=== PATIENT | female | born 1990 | race American Indian/Alaskan Native ===

== ENCOUNTER 2017-09-21 00:32 | Outpatient (CLI) | payer MEDICAID ==
[2017-09-21 01:44] LABS: Bilirubin,Urine NEG (Negative); Blood,Urine NEG (Negative); Color,Urine Yellow (Yellow); Mucus,Urine FEW /HPF; Protein,Urine <15 mg/dL mg/dL (Negative); Urobilinogen,Urine < 2.0 mg/dL (<2.0)
== END 2017-09-21 03:47 | disposition home or self-care (01) ==
LOC: TRG 00:32 → LD 00:35 → TRG 03:47
PROVIDERS: ATTEND Obstetrics & Gynecology
DX: O99.332 Smoking (tobacco) complicating pregnancy, second trimester (principal); F17.200 Nicotine dependence, unspecified, uncomplicated; O47.02 False labor before 37 completed weeks of gestation, second trimester; Z3A.25 25 weeks gestation of pregnancy
CPT/HCPCS: 59025; 81001

== ENCOUNTER 2017-09-25 01:33 | Outpatient (CLI) | payer MEDICAID ==
[2017-09-25] MEDS ORDERED: LACTATED RINGERS 500 ML IV ONE (01:50)
[2017-09-25 01:57] VITALS: BP 130/68
== END 2017-09-25 02:22 | disposition home or self-care (01) ==
LOC: LD 01:33 → TRG 01:33
PROVIDERS: ATTEND Obstetrics & Gynecology
DX: O47.02 False labor before 37 completed weeks of gestation, second trimester (principal); Z3A.26 26 weeks gestation of pregnancy
CPT/HCPCS: 59025; J7120

== ENCOUNTER 2017-10-15 00:44 | Outpatient (CLI) | payer MEDICAID ==
[2017-10-15 00:57] VITALS: BP 121/66
[2017-10-15] MEDS ORDERED: LACTATED RINGERS 500 ML IV ONE (01:12)
== END 2017-10-15 01:56 | disposition home or self-care (01) ==
LOC: TRG 00:44
PROVIDERS: ATTEND Obstetrics & Gynecology
DX: O47.03 False labor before 37 completed weeks of gestation, third trimester (principal); Z3A.29 29 weeks gestation of pregnancy
CPT/HCPCS: 59025

== ENCOUNTER 2020-03-07 17:19 | Emergency (ER) | payer MEDICAID, OTHER ==
[2020-03-07 17:30] VITALS: BP 151/92
--- NOTE | 2020-03-07 18:44 | Emergency Department Report ---
ED ENT HPI - General Chief complaint: Dental/Oral Stated complaint: tooth pain/6weeks preg Time Seen by Provider: 03/07/20 18:38 Source: patient Mode of arrival: Ambulatory Limitations: No Limitations - History of Present Illness Initial comments: 29 y/o female presents to ER for teeth pain times 1 day. Patient reports that the fan blew on her and she got a sharp pain through tooth. 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 Patient is 6 weeks . No ob complaints. MD complaint: tooth pain -: This afternoon Location: tooth # ([id number]) Severity: severe Quality: stabbing, sharp Consistency: intermittent Improves with: none Worsens with: none Context- Dental: history of dental caries, poor dental care - Related Data Previous Rx's Medication Instructions Recorded Last Taken Type Acetaminophen [Non-Aspirin Pain 500 mg PO Q6H #30 tablet 03/07/20 Unknown Rx Relief] Amoxicillin [Trimox CAP] 500 mg PO Q8H 10 Days #30 capsule 03/07/20 Unknown Rx Allergies Allergy/AdvReac Type Severity Reaction Status Date / Time aspirin Allergy Swelling Verified 03/07/20 17:25 ED Dental HPI - General Chief complaint: Dental/Oral Stated complaint: tooth pain/6weeks preg Time Seen by Provider: 03/07/20 18:38 Source: patient Mode of arrival: Ambulatory Limitations: No Limitations - Related Data Previous Rx's Medication Instructions Recorded Last Taken Type Acetaminophen [Non-Aspirin Pain 500 mg PO Q6H #30 tablet 03/07/20 Unknown Rx Relief] Amoxicillin [Trimox CAP] 500 mg PO Q8H 10 Days #30 capsule 03/07/20 Unknown Rx Allergies Allergy/AdvReac Type Severity Reaction Status Date / Time aspirin Allergy Swelling Verified 03/07/20 17:25 ED Review of Systems ROS: Stated complaint: tooth pain/6weeks preg Other details as noted in HPI Comment: All other systems reviewed and negative ED Past Medical Hx - Past Medical History Hx Hypertension: Yes Hx Diabetes: No Hx Deep Vein Thrombosis: No Hx Renal Disease: No Hx Sickle Cell Disease: No Hx Headaches / Migraines: Yes Hx Seizures: No Hx Asthma: Yes (LAST YEAR) Hx HIV: No - Social History Smoking Status: Never Smoker Substance Use Type: None - Medications Home Medications: Home Medications Medication Instructions Recorded Confirmed Last Taken Type Acetaminophen [Non-Aspirin Pain 500 mg PO Q6H #30 tablet 03/07/20 Unknown Rx Relief] Amoxicillin [Trimox CAP] 500 mg PO Q8H 10 Days #30 capsule 03/07/20 Unknown Rx ED Physical Exam - General Limitations: No Limitations General appearance: alert, in no apparent distress - Head Head exam: Present: atraumatic, normocephalic - Eye Eye exam: Present: normal appearance - Expanded ENT Exam Expanded Teeth exam: Present: dental caries, gingival enlargement Throat exam: Positive: normal inspection - Neck Neck exam: Present: normal inspection, full ROM - Neurological Exam Neurological exam: Present: alert, oriented X3, normal gait - Psychiatric Psychiatric exam: Present: normal affect, normal mood - Skin Skin exam: Present: warm, dry, intact, normal color. Absent: rash ED Course Vital Signs 03/07/20 17:28 Temperature 99.4 F Pulse Rate 97 H Respiratory 20 Rate Blood Pressure 151/92 [Right] O2 Sat by Pulse 95 Oximetry ED Medical Decision Making - Medical Decision Making 29 y/o female presents to ER for teeth pain times 1 day. Patient reports that the fan blew on her and she got a sharp pain through tooth. 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 Patient is 6 weeks . No ob complaints. Patient will be placed on amoxicillin 500mg tid for 10 days. Encourage to keep appointment to dentist. Take Tylenol as prescribed. Critical care attestation.: If time is entered above; I have spent that time in minutes in the direct care of this critically ill patient, excluding procedure time. ED Disposition Clinical Impression: Dental abscess Disposition: DC- TO HOME OR SELFCARE Is pt being admited?: No Does the pt Need Aspirin: No Condition: Stable Instructions: Dental Abscess (ED) Additional Instructions: Complete antibiotic as prescribed take pain medication. Prescriptions: Acetaminophen [Non-Aspirin Pain Relief] 500 mg PO Q6H #30 tablet Amoxicillin [Trimox CAP] 500 mg PO Q8H 10 Days #30 capsule
== END 2020-03-07 19:00 | disposition home or self-care (01) ==
LOC: ED 17:19
DX: O99.611 Diseases of the digestive system complicating pregnancy, first trimester (principal); K04.7 Periapical abscess without sinus; G43.909 Migraine, unspecified, not intractable, without status migrainosus; J45.909 Unspecified asthma, uncomplicated; Z3A.01 Less than 8 weeks gestation of pregnancy; Z79.2 Long term (current) use of antibiotics; Z79.899 Other long term (current) drug therapy; Z88.6 Allergy status to analgesic agent
CPT/HCPCS: 99282

== ENCOUNTER 2020-04-06 11:27 | Day surgery (SDC) | payer OTHER ==
[2020-04-06] MEDS ORDERED: ONDANSETRON 4 MG/2 ML INJ ONE (13:01)
[2020-04-06] MEDS ORDERED: LIDOCAINE MPF (2%) 20 MG/1 ML VIAL 5 ML ONE (13:01)
[2020-04-06] MEDS ORDERED: propofoL 200 MG/20 ML VIAL IV ONE (13:02)
[2020-04-06] MEDS ORDERED: fentaNYL 100 MCG/2 ML INJ ONE (13:02)
[2020-04-06] MEDS ORDERED: HYDROmorphone 1 MG/1 ML INJ IV PRN (13:14)
[2020-04-06] MEDS ORDERED: MEPERIDINE 25 MG/1 ML INJ IV PRN (13:14)
[2020-04-06] MEDS ORDERED: ONDANSETRON 4 MG/2 ML INJ IV PRN (13:14)
--- NOTE | 2020-04-06 13:14 | Anesthesia Consultation ---
Anesthesia Consult and Med Hx Date of service: 04/06/20 - Airway Anesthetic Teeth Evaluation: Good ROM Head & Neck: Adequate Mental/Hyoid Distance: Adequate Mallampati Class: Class I Intubation Access Assessment: Good - Pulmonary Exam CTA: Yes - Cardiac Exam Cardiac Exam: RRR - Pre-Operative Health Status ASA Pre-Surgery Classification: ASA2 Proposed Anesthetic Plan: General - Pulmonary Hx Smoking: Yes (/ PPD) Hx Asthma: Yes (last inhaler use 3 yrs ago) Hx Respiratory Symptoms: No - Cardiovascular System Hx Hypertension: Yes (no meds) Hx Heart Attack/AMI: No - Central Nervous System CVA: No - Gastrointestinal Hx Gastroesophageal Reflux Disease: No - Endocrine Hx Renal Disease: No Hx Liver Disease: No Hx Insulin Dependent Diabetes: No Hx Non-Insulin Dependent Diabetes: No Hx Thyroid Disease: No - Other Systems Hx Obesity: No - Additional Comments Anesthesia Medical History Comments: No hx anesthetic complications. D&C for missed AB <12wks.
--- NOTE | 2020-04-06 13:14 | Anesthesia Day of Surgery ---
Anesthesia Day of Surgery - Day of Surgery Patient Examined: Yes Patient H&P Reviewed: Yes Patient is NPO: Yes
[2020-04-06] MEDS ORDERED: SILVER NITRATE APPLICATOR 1 EA TP ONE (13:17)
[2020-04-06] MEDS ORDERED: ceFAZolin/STERILE WATER 2 GM/20 ML SYRINGE IV NR (13:22)
[2020-04-06] MEDS ORDERED: SCOPOLAMINE TRANSDERMAL PATCH 72 HR TD NR (14:00)
[2020-04-06] MEDS ORDERED: LACTATED RINGERS 1,000 ML IV SCH (14:00)
[2020-04-06] MEDS ORDERED: MIDAZOLAM 2 MG/2 ML INJ IV NR (14:00)
[2020-04-06] MEDS ORDERED: METHYLERGONOVINE MALEATE 0.2 MG/ML VIAL IM ONE (14:01)
[2020-04-06] MEDS ORDERED: KETOROLAC 30 MG/1 ML INJ ONE (14:19)
[2020-04-06] MEDS ORDERED: LACTATED RINGERS 1,000 ML ONE (14:19)
--- NOTE | 2020-04-06 14:33 | Operative Report ---
Operative Report Operative Report: Preoperative diagnosis: Missed Postoperative diagnosis: Same Surgeon: Dr. Monika Adame Anesthesia:GET Complications: None EBL:300ml IV fluids: 1 L Urine output adequate and clear Drains none Findings: Boggy retroverted 10 weeks size uterus, products of conception Procedure: Patient was consented in preop holding. She was then taken to the OR where she received excellent general endotracheal anesthesia. She was then placed in the dorsolithotomy position, prepped and draped in a sterile fashion. A timeout was verified. Adequate urine output obtained with a red rubber catheter. Exam under anesthesia revealed the above findings. A speculum was placed in the vaginal vault and a single-tooth tenaculum placed on the anterior lip of the cervix. The endocervical canal was dilated to allow for a 10 mm curved curette. Suction curettage was then performed, adequate products of conception obtained. At the completion of the procedure sharp curettage was performed to ensure complete evacuation of the uterus. Patient was noted to be bleeding moderately and Methergine 0.2 mg was given IM x1 dose. Excellent hemostasis was then noted and the uterus was noted to be firm. The tenaculum and speculum were removed from the cervix and vaginal vault respectively. The patient was extubated and taken to the recovery area in stable condition. There were no complications. All sponge needle and instrument counts were correct x2. Patient's family was notified of her stable status prior to extubation. She will be discharged and follow-up in the outpatient setting. Dr Monika Adame MD
[2020-04-06] MEDS ORDERED: dexAMETHasone 20 MG/5 ML VIAL ONE (14:42)
[2020-04-06 15:27] VITALS: BP 125/73
--- NOTE | 2020-04-06 15:38 | Post Anesthesia Evaluation ---
- Post Anesthesia Evaluation Patient Participated: Yes Airway Patent: Yes Stable Respiratory Function: Yes Nausea/Vomiting: No Temp > 96.8F: Yes Pain Manageable: Yes Adequeate Hydration: Yes Anesthesia Complications: No
== END 2020-04-06 15:39 | disposition home or self-care (01) ==
LOC: OR 11:27
PROVIDERS: ATTEND Obstetrics & Gynecology
DX: O02.1 Missed abortion (principal); F17.210 Nicotine dependence, cigarettes, uncomplicated; I10 Essential (primary) hypertension; J45.909 Unspecified asthma, uncomplicated; F32.9 Major depressive disorder, single episode, unspecified; F41.9 Anxiety disorder, unspecified; Z72.89 Other problems related to lifestyle; Z88.6 Allergy status to analgesic agent; Z83.3 Family history of diabetes mellitus; Z79.899 Other long term (current) drug therapy; Z82.49 Family history of ischemic heart disease and other diseases of the circulatory system
CPT/HCPCS: 59820; 88305; J0690; J1100; J1170; J1885; J2210; J2250; J2405; J2704; J3010; J7120

== ENCOUNTER 2021-10-18 13:14 | Emergency (ER) | payer OTHER ==
--- NOTE | 2021-10-18 15:15 | Emergency Department Report ---
ED Female HPI - General Chief complaint: Medical Clearance Stated complaint: DEHYDRATED/19 WKS PREG Time Seen by Provider: 10/18/21 15:10 Source: patient Mode of arrival: Ambulatory Limitations: No Limitations - History of Present Illness Initial comments: Patient is a 31-year-old female that comes to the emergency room she states because her DIRECTOR OF CONSULTING SERVICES sent her because she is dehydrated. However she is carrying a liter bottle of water and a tray of food. She denies fever or chills. She is clearly not actively vomiting. Denies nausea or diarrhea. Denies any vaginal discharge or bleeding. Denies dysuria. She is ambulatory nontoxic non-ill-lakia earing on arrival. Last menstrual period was 1-15. This is her fourth . She has 2 living children has had 1 miscarriage -: Gradual, days(s) Severity scale (0 -10): 0 Are you Now?: Yes Associated Symptoms: denies other symptoms - Related Data Sexually active: Yes Previous Rx's Medication Instructions Recorded Last Taken Type Amoxicillin [Trimox CAP] 500 mg PO BID #20 capsule 10/18/21 Unknown Rx Ondansetron [Zofran Odt] 4 mg PO Q8HR PRN #10 tab.rapdis 10/18/21 Unknown Rx Allergies Allergy/AdvReac Type Severity Reaction Status Date / Time aspirin Allergy Swelling Verified 04/05/20 15:16 ED Review of Systems ROS: Stated complaint: DEHYDRATED/19 WKS PREG Other details as noted in HPI Comment: All other systems reviewed and negative ED Past Medical Hx - Past Medical History Previous Medical History?: Yes Hx Hypertension: Yes (no meds) Hx Heart Attack/AMI: No Hx Diabetes: No Hx Deep Vein Thrombosis: No Hx Liver Disease: No Hx Renal Disease: No Hx Headaches / Migraines: Yes Hx Asthma: Yes (last inhaler use 3 yrs ago) Hx HIV: No - Surgical History Past Surgical History?: No - Family History Family history: no significant - Social History Smoking Status: Current Every Day Smoker Substance Use Type: None - Medications Home Medications: Home Medications Medication Instructions Recorded Confirmed Last Taken Type Amoxicillin [Trimox CAP] 500 mg PO BID #20 capsule 10/18/21 Unknown Rx Ondansetron [Zofran Odt] 4 mg PO Q8HR PRN #10 tab.rapdis 10/18/21 Unknown Rx ED Physical Exam - General Limitations: No Limitations General appearance: alert, in no apparent distress - Head Head exam: Present: atraumatic, normocephalic - Eye Eye exam: Present: normal appearance - ENT ENT exam: Present: mucous membranes moist - Neck Neck exam: Present: normal inspection - Respiratory Respiratory exam: Present: normal lung sounds bilaterally. Absent: respiratory distress - Cardiovascular Cardiovascular Exam: Present: regular rate, normal rhythm. Absent: systolic murmur, diastolic murmur, rubs, gallop - GI/Abdominal GI/Abdominal exam: Present: soft, normal bowel sounds - Extremities Exam Extremities exam: Present: normal inspection - Back Exam Back exam: Present: normal inspection - Neurological Exam Neurological exam: Present: alert, oriented X3 - Psychiatric Psychiatric exam: Present: normal affect, normal mood - Skin Skin exam: Present: warm, dry, intact, normal color. Absent: rash ED Course Vital Signs 10/18/21 14:09 Temperature 98.3 F Pulse Rate 89 Respiratory 16 Rate Blood Pressure 138/59 [Right] O2 Sat by Pulse 99 Oximetry ED Medical Decision Making - Lab Data Result diagrams: 10/18/21 15:01 10/18/21 15:01 - Medical Decision Making Lab Results 10/18/21 10/18/21 10/18/21 Range/Units 15:01 15:01 Unknown WBC 14.9 H (4.5-11.0) K/mm3 RBC 3.47 L (3.65-5.03) M/mm3 Hgb 10.9 (10.1-14.3) gm/dl Hct 32.8 (30.3-42.9) % MCV 94 (79-97) fl MCH 31 (28-32) pg MCHC 33 (30-34) % RDW 13.7 (13.2-15.2) % Plt Count 269 (140-440) K/mm3 Lymph % (Auto) 23.2 (13.4-35.0) % [place] % (Auto) 6.7 (0.0-7.3) % Eos % (Auto) 1.6 (0.0-4.3) % Baso % (Auto) 0.5 (0.0-1.8) % Lymph # (Auto) 3.5 (1.2-5.4) K/mm3 [place] # (Auto) 1.0 H (0.0-0.8) K/mm3 Eos # (Auto) 0.2 (0.0-0.4) K/mm3 Baso # (Auto) 0.1 (0.0-0.1) K/mm3 Seg Neutrophils % 68.0 (40.0-70.0) % Seg Neutrophils # 10.1 H (1.8-7.7) K/mm3 Sodium 133 L (137-145) mmol/L Potassium 3.6 (3.6-5.0) mmol/L Chloride 98.3 (98-107) mmol/L Carbon Dioxide 24 (22-30) mmol/L Anion Gap 14 mmol/L BUN 16 (7-17) mg/dL Creatinine 0.8 (0.6-1.2) mg/dL Estimated GFR > 60 ml/min BUN/Creatinine Ratio 20 % Glucose 93 (65-100) mg/dL Calcium 9.0 (8.4-10.2) mg/dL Total Bilirubin < 0.20 (0.1-1.2) mg/dL AST 17 (5-40) units/L ALT 16 (7-56) units/L Alkaline Phosphatase 53 (35-129) units/L Total Protein 7.5 (6.3-8.2) g/dL Albumin 4.1 (3.9-5) g/dL Albumin/Globulin Ratio 1.2 % Lipase 26 (13-60) units/L Urine Color Colorless (Yellow) Urine Turbidity Clear (Clear) Urine pH 6.0 (5.0-7.0) Ur Specific [place] 1.001 L (1.003-1.030) Urine Protein <15 mg/dl (Negative) mg/dL Urine Glucose (UA) Neg (Negative) mg/dL Urine Ketones Neg (Negative) mg/dL Urine Blood Sm (Negative) Urine Nitrite Neg (Negative) Urine Bilirubin Neg (Negative) Urine Urobilinogen < 2.0 (<2.0) mg/dL Ur Leukocyte Esterase Lg (Negative) Urine WBC (Auto) 23.0 H (0.0-6.0) /HPF Urine RBC (Auto) 2.0 (0.0-6.0) /HPF U Epithel Cells (Auto) 2.0 (0-13.0) /HPF Urine Bacteria (Auto) 1+ (Negative) /HPF Vital Signs 10/18/21 14:09 Temperature 98.3 F Pulse Rate 89 Respiratory 16 Rate Blood Pressure 138/59 [Right] O2 Sat by Pulse 99 Oximetry Vital signs are normal. Patient is taking p.o. Labs noted. UA noted. Patient given a liter of normal saline, a gram of Rocephin, Zofran IV x1. Patient being discharged home on amoxicillin. Patient verbalizes understanding of discharge plan of care including diet, activity, medications and follow-up. - Differential Diagnosis Nausea and vomiting in rule out UTI Critical care attestation.: If time is entered above; I have spent that time in minutes in the direct care of this critically ill patient, excluding procedure time. ED Disposition Clinical Impression: Nausea and vomiting during UTI (urinary tract infection) Qualifiers: Urinary tract infection type: site unspecified Disposition: 01 HOME / SELF CARE / HOMELESS Is pt being admited?: No Does the pt Need Aspirin: No Condition: Stable Instructions: Hyperemesis Gravidarum Additional Instructions: Zofran for nausea. Tylenol for pain Follow-up with DIRECTOR OF CONSULTING SERVICES JOANNA ANTIBIOTIC UNTIL GONE FOR UTI MAKE SURE OBGYN RECHECKS YOUR URINE Prescriptions: Amoxicillin [Trimox CAP] 500 mg PO BID #20 capsule Ondansetron [Zofran Odt] 4 mg PO Q8HR PRN #10 tab.rapdis PRN Reason: Vomiting Referrals: NHUNG TYLER MD [Staff Physician] - 3-5 Days Time of Disposition: 15:30
[2021-10-18] MEDS ORDERED: ONDANSETRON 4 MG/2 ML INJ IV ONE (15:31)
[2021-10-18] MEDS ORDERED: SODIUM CHLORIDE 0.9% 1000 ML 1,000 ML IV ONE (15:31)
[2021-10-18 15:48] LABS: Basophils # (Auto) 0.1 K/mm3 (0.0-0.1); Basophils % (Auto) 0.5 % (0.0-1.8); Eosinophils # (Auto) 0.2 K/mm3 (0.0-0.4); Eosinophils % (Auto) 1.6 % (0.0-4.3); Hematocrit 32.8 % (30.3-42.9); Hemoglobin 10.9 gm/dl (10.1-14.3); Lymphocytes # (Auto) 3.5 K/mm3 (1.2-5.4); Lymphocytes % (Auto) 23.2 % (13.4-35.0); Mean Corpuscular HGB Conc 33 % (30-34); Mean Corpuscular Volume 94 fl (79-97); Monocytes % (Auto) 6.7 % (0.0-7.3); Platelet Count 269 K/mm3 (140-440); Red Blood Count 3.47 M/mm3 (3.65-5.03); Red Cell Distribution Width 13.7 % (13.2-15.2)
[2021-10-18 16:06] LABS: Alanine Aminotransferase 16 units/L (7-56); Albumin 4.1 g/dL (3.9-5); BUN/Creatinine Ratio 20; Blood Urea Nitrogen 16 mg/dL (7-17); Hemolysis Index 0
[2021-10-18 16:24] LABS: Bacteria,Urine 1+ /HPF (Negative); Bilirubin,Urine NEG (Negative); Blood,Urine SM (Negative); Color,Urine Colorless (Yellow); Protein,Urine <15 mg/dL mg/dL (Negative); Urobilinogen,Urine < 2.0 mg/dL (<2.0)
[2021-10-18] MEDS ORDERED: cefTRIAXone/NS 1 GM/50 ML 1 GM/50 ML BAG IV ONE (16:37)
[2021-10-18 17:43] VITALS: BP 138/62
== END 2021-10-18 17:42 | disposition home or self-care (01) ==
LOC: ED 13:14
DX: O23.40 Unspecified infection of urinary tract in pregnancy, unspecified trimester (principal); O21.9 Vomiting of pregnancy, unspecified; Z3A.19 19 weeks gestation of pregnancy; F17.200 Nicotine dependence, unspecified, uncomplicated; Z88.6 Allergy status to analgesic agent; I10 Essential (primary) hypertension
CPT/HCPCS: 36415; 80053; 81001; 83690; 85025; 87086; 96365; 96375; 99283; J0696; J2405; J7030

== ENCOUNTER 2021-11-11 08:20 | Outpatient (CLI) | payer OTHER ==
[2021-11-11] MEDS ORDERED: LACTATED RINGERS 500 ML IV ONE (10:00)
[2021-11-11 11:36] LABS: Hematocrit 32.1 % (30.3-42.9); Hemoglobin 10.5 gm/dl (10.1-14.3); Mean Corpuscular HGB Conc 33 % (30-34); Mean Corpuscular Volume 95 fl (79-97); Platelet Count 245 K/mm3 (140-440); Red Blood Count 3.38 M/mm3 (3.65-5.03); Red Cell Distribution Width 13.3 % (13.2-15.2)
[2021-11-11 11:39] VITALS: BP 126/85
[2021-11-11 11:55] LABS: Alanine Aminotransferase 17 units/L (7-56)
[2021-11-11] MEDS ORDERED: BUTALB/ACETAMINOPHEN/CAFFEINE TAB PO ONE (12:37)
[2021-11-11] MEDS ORDERED: BUTALB/ACETAMINOPHEN/CAFFEINE TAB ONE (12:42)
[2021-11-11 13:21] LABS: Amphetamine Screen,Urine Negative; Benzodiazepines Screen,Urine Negative; Cocaine Screen,Urine Negative; Methadone Screen,Urine Negative; Opiate Screen,Urine Negative
[2021-11-11 13:25] LABS: Bilirubin,Urine NEG (Negative); Blood,Urine NEG (Negative); Color,Urine Yellow (Yellow); Mucus,Urine FEW /HPF; Protein,Urine <15 mg/dL mg/dL (Negative); Urobilinogen,Urine < 2.0 mg/dL (<2.0)
[2021-11-11 13:52] LABS: Cannabinoid Screen,Urine Positive
== END 2021-11-11 14:21 | disposition home or self-care (01) ==
LOC: TRG 08:20 → APU 08:21 → TRG 14:21
PROVIDERS: ATTEND Obstetrics & Gynecology
DX: O13.2 Gestational [pregnancy-induced] hypertension without significant proteinuria, second trimester (principal); O99.512 Diseases of the respiratory system complicating pregnancy, second trimester; R41.0 Disorientation, unspecified; R51.9 Headache, unspecified; J45.909 Unspecified asthma, uncomplicated; O99.012 Anemia complicating pregnancy, second trimester; D64.9 Anemia, unspecified; Z3A.20 20 weeks gestation of pregnancy; Z79.899 Other long term (current) drug therapy
CPT/HCPCS: 36415; 59025; 80307; 81001; 82565; 83615; 84450; 84460; 85027; 87086; 96360; J7120

== ENCOUNTER 2022-01-07 00:25 | Outpatient (CLI) | payer OTHER ==
[2022-01-07 00:48] VITALS: BP 115/64
[2022-01-07 01:11] LABS: Bilirubin,Urine Negative (Negative); Blood,Urine Negative (Negative); Color,Urine Yellow (Yellow); Protein,Urine <15 mg/dL mg/dL (Negative)
[2022-01-07 01:12] LABS: Bacteria,Urine 1+ /HPF (Negative); Mucus,Urine FEW /HPF
[2022-01-07] MEDS ORDERED: ACETAMINOPHEN 500 MG TAB PO ONE (01:41)
[2022-01-07] MEDS ORDERED: LIDOCAINE-MPF (1%) 10 MG/1 ML VIAL 5 ML INFILTRATI ONE (02:43)
== END 2022-01-07 02:56 | disposition home or self-care (01) ==
LOC: TRG 00:25 → APU 00:27 → TRG 02:56
PROVIDERS: ATTEND Obstetrics & Gynecology
DX: O62.9 Abnormality of forces of labor, unspecified (principal); O99.513 Diseases of the respiratory system complicating pregnancy, third trimester; J45.909 Unspecified asthma, uncomplicated; O16.3 Unspecified maternal hypertension, third trimester; O99.013 Anemia complicating pregnancy, third trimester; D64.9 Anemia, unspecified; Z3A.29 29 weeks gestation of pregnancy
CPT/HCPCS: 59025; 81001; 87086; 96372; J0696; J3490

== ENCOUNTER 2022-02-23 22:33 | Outpatient (CLI) | payer OTHER ==
[2022-02-23] MEDS ORDERED: LACTATED RINGERS 500 ML IV ONE (22:41)
[2022-02-23 23:19] LABS: Color,Urine Straw (Yellow)
[2022-02-23 23:23] LABS: Bacteria,Urine 1+ /HPF (Negative); Mucus,Urine FEW /HPF
[2022-02-23 23:30] VITALS: BP 117/56
== END 2022-02-23 23:54 | disposition home or self-care (01) ==
LOC: TRG 22:33 → APU 22:41 → TRG 23:54
PROVIDERS: ATTEND Obstetrics & Gynecology Gynecology
DX: O26.893 Other specified pregnancy related conditions, third trimester (principal); Z3A.35 35 weeks gestation of pregnancy
CPT/HCPCS: 59025; 81001; 87086